=== PATIENT | male | born 1955 | race African-American/Black ===

== ENCOUNTER 2017-02-16 15:40 | Inpatient (IN) | payer MEDICAID, OTHER ==
[~2017-02-16] VITALS: Ht 177.8 cm; Wt 95.5 kg
[~2017-02-16 15:40] MED LIST: BENA40TA41; CARV12.579; FURO40TA4; POTASSIUM
[2017-02-16] MEDS ORDERED: SOD CHLORIDE 0.9% 1,000 ML IV STA ×2 (15:48→16:08)
--- NOTE | 2017-02-16 16:00 | ERA ---
ER Documentation Chief Complaint Date/Time DATE: 02/16/17 TIME: 15:53 Chief Complaint HPI This is a 61-year-old -[place] male with known history of hypertension that presents to the emergency department brought in by EMS after he had a witnessed tonic-clonic seizure by his just prior to arrival. The patient indicates that he has never had any seizure activity before. EMS arrived and the patient appeared very combative and confused. The patient lost urinary incontinence and did not bite his tongue. His states that over the past 7 days he has appeared confused but denies any recent remote head trauma. The patient did indicate that yesterday around 1 PM, 12 hours prior to arrival the patient developed bilateral pulsating headache. He took Advil and had a completely resolved. He states he does not have a headache at this time. He has no fever shaking or chills and denies any neck pain. He has had no recent travel. He denies illicit drug use. [employer] were called due to the fact that the patient was very aggressive and he was transported to [facility] for further evaluation. EMS did indicate that the stated the patient had a history of alcohol abuse. The believes the last time the patient utilized alcohol was . The patient is a poor historian and therefore is unable to provide any further history. ROS All systems reviewed and are negative except as per history of present illness. Medications Home Meds Discontinued Reported Medications [Potassium ] 40 MEQ No Conflict Check 09/22/09 Furosemide (Lasix) 40 Mg Tab 09/22/09 Benazepril Hcl* (Benazepril Hcl*) 40 Mg Tablet 09/22/09 Carvedilol* (Carvedilol*) 12.5 Mg Tablet 09/22/09 Allergies Allergies: Coded Allergies: No Known Allergies (Verified Allergy, Mild, 02/16/17) PMhx/Soc History of Surgery: Yes (JESSIKA KNEE) Hx Neurological Disorder: No Hx Respiratory Disorders: Yes (BRONCHITIS) Hx Cardiac Disorders: Yes (CHF HTN) Hx Miscellaneous Medical Probl: No Hx Alcohol Use: No Hx Substance Use: No Hx Tobacco Use: No Physical Exam Vitals Vital Signs Date Time Temp Pulse Resp B/P Pulse Ox O2 Delivery O2 Flow Rate FiO2 02/16/17 18:24 98.9 96 22 132/64 99 Nasal Cannula 3.0 02/16/17 16:34 Nasal Cannula 2 02/16/17 16:24 110 22 140/100 Nasal Cannula 3.0 02/16/17 15:57 98.9 118 18 136/79 99 Physical Exam Constitutional:Well-developed. Well-nourished. HEENT:Normocephalic. Atraumatic.Pupils were equal round reactive to light. Dry mucous membranes.No tonsillar exudates. Endoscopy exam showed sharp optic disc bilaterally venous pulsations were present. Linear abrasion over the right lateral tongue with no blood present within the oropharynx. Neck: No nuchal rigidity. No lymphadenopathy. No posterior cervical spine tenderness or step-offs. Respiratory: Not using accessory muscles of respiration.Lungs were clear to auscultation bilaterally. No rhonchi. No rales. No wheezing. Cardiovascular: Regular rate regular rhythm.No murmurs. No rubs were appreciated.S1, S2 normal. Distal pulses are palpable 2+ bilaterally. GI: Abdomen was soft. Nontender. Non Distended. No pulsatile abdominal masses or bruits. No rebound. No guarding. Bowel sounds were present and normal. Muscle skeletal: Full range of motion of both the upper and lower extremities bilaterally.Normal muscle tone.No assymetrical calf tenderness or swelling. Skin: No petechia, no purpura. No lesions on the palms or the soles of the feet. No maculopapular rash. NEURO: Patient was alert, awake, orientated to person place and time but was very slow to answer questions but did follow verbal command. No facial droop. Gait observed and normal with no ataxia.Speech had regular rate and rhythm. No focal neurological deficits. Result Diagram: 02/16/17 1650 02/16/17 1650 Results 24 hrs Laboratory Tests Test 02/16/17 16:50 White Blood Count 5.610^3/ul Red Blood Count 4.5510^6/ul Hemoglobin 13.8g/dl Hematocrit 39.8% Mean Corpuscular Volume 87.5fl Mean Corpuscular Hemoglobin 30.3pg Mean Corpuscular Hemoglobin Concent 34.7g/dl Red Cell Distribution Width 14.0% Platelet Count 96258^3/UL Mean Platelet Volume 10.3fl Neutrophils % 77.0% Lymphocytes % 10.7% Monocytes % 9.8% Eosinophils % 1.6% Basophils % 0.4% Nucleated Red Blood Cells % 0.0/100WBC Neutrophils # 4.310^3/ul Lymphocytes # 0.610^3/ul Monocytes # 0.610^3/ul Eosinophils # 0.110^3/ul Basophils # 0.010^3/ul Nucleated Red Blood Cells # 0.010^3/ul Prothrombin Time 13.8Sec Prothrombin Time Ratio 1.1 INR International Normalized Ratio 1.06 Activated Partial Thromboplast Time 28.4Sec Sodium Level 139mmol/L Potassium Level 3.5mmol/L Chloride Level 95mmol/L Carbon Dioxide Level 27mmol/L Anion Gap 21 Blood Urea Nitrogen 17mg/dl Creatinine 0.99mg/dl Glucose Level 172mg/dl Lactic Acid Level 7.6mmol/L Calcium Level 9.2mg/dl Total Bilirubin 0.3mg/dl Direct Bilirubin 0.00mg/dl Indirect Bilirubin 0.3mg/dl Aspartate Amino Transf (AST/SGOT) 265IU/L Alanine Aminotransferase (ALT/SGPT) 309IU/L Alkaline Phosphatase 145IU/L Ammonia 15umol/l Creatine Kinase 896IU/L Creatine Kinase Index 2.3 Creatinine Kinase MB (Mass) 20.70ng/ml Troponin I 0.024ng/ml Total Protein 7.1g/dl Albumin 3.7g/dl Globulin 3.40g/dl Albumin/Globulin Ratio 1.08 Salicylates Level < 1.0mg/dl Acetaminophen Level < 10.0ug/ml Ethyl Alcohol Level < 10.0mg/dl Current Medications Medications (Trade) Dose Ordered Sig/Epifanio Route PRN Reason Start Time Stop Time Status Last Admin Dose Admin Sodium Chloride (NS) 1,000 ml @ 1,000 mls/hr Q1H STAT IV 02/16/17 15:48 02/16/17 16:47 DC 02/16/17 16:17 Epinephrine 1 mg STK-MED ONCE .ROUTE 02/16/17 16:05 02/16/17 16:06 DC Lorazepam 2 mg 2 mg STK-MED ONCE .ROUTE 02/16/17 16:06 02/16/17 16:07 DC Sodium Chloride (NS) 1,000 ml @ 1,000 mls/hr Q1H STAT IV 02/16/17 16:08 02/16/17 17:07 DC 02/16/17 16:21 Lorazepam 2 mg 2 mg ONCE STAT IV 02/16/17 16:08 02/16/17 16:09 DC 02/16/17 16:17 Levetiracetam 100 ml @ 400 mls/hr ONCE STAT IVPB 02/16/17 16:08 02/16/17 16:22 DC 02/16/17 16:08 Magnesium Sulfate/ Multivitamins/ Thiamine HCl/ Folic Acid/Sodium Chloride (Magnesium Sulfate/Mvi Adult/ Vitamin B1/Folic Acid/NS) 1,015.2 ml @ 500 mls/ hr Q2H2M STAT IV 02/16/17 16:08 02/16/17 18:09 DC 02/16/17 16:08 Sodium Chloride 2960 ml 2,960 ml BOLUS OVER 2 HOURS STAT IV* 02/16/17 18:03 02/16/17 18:04 DC 02/16/17 18:44 Vancomycin HCl 250 ml @ 125 mls/hr ONCE STAT IVPB 02/16/17 18:03 02/16/17 20:02 DC 02/16/17 21:34 Piperacillin Sod/ Tazobactam Sod (Zosyn 3.375gm/ 100 ml (Pmx)) 100 ml @ 200 mls/hr ONCE STAT IVPB 02/16/17 18:03 02/16/17 18:32 DC 02/16/17 18:03 Procedures/MDM The patient presented to the emergency department with an acute and persistent change in their mental status. The differential diagnosis is diverse however reversible causes such as hypoglycemia, opiate overdose, thiamine deficiency were immediately considered. The patient was placed on a satellite project site monitor, continuous pulse oximetry and IV access was established. The patients airway was secure however hypoxic events such as anemia, shock, or severe pulmonary disease were all considered as etiologies in this patients presentation. Circulation assessed with good cap refill and did not require fluids or pressure support. Finger stick for rapid glucose determined to be normal. I did indicate [employer] that I felt the patient could be removed from the cuffs as he was no longer combative. He appeared very confused and had no recollection of the possible seizure activity. The patient had no nuchal rigidity or signs of meningitis. At 1605 the patient had a witnessed tonic-clonic seizure by myself and nursing staff. He immediately was suctioned, airway was intact and the patient received 2 mg of Ativan intravenously with resolution of the seizure. Seizure precautions were administered. Given the possibility of delirium tremors the patient was given a banana bag of thiamine folic acid and multivitamin. He was also given IV Keppra. 12 Lead EKG tracing ordered and reviewed by myself showed: Sinus tachycardia 101 bpm and no arrhythmia. MN interval normal. QRS duration normal. No ST segment elevation No ST segment depression. No changes consistent with acute ischemia. The patient's lactic acid was elevated at 7.6. However I did not feel the patient was in septic shock due to the elevated lactate and felt this was more likely result of the patient's seizure activity. The patient however did receive a 30 cc/kg bolus and was prophylactically started on antibiotics as I could not rule out aspiration pneumonia. He received vancomycin and Zosyn. The patient was not hypotensive and was afebrile The patient will be admitted in serious condition with an anticipated stay of greater than 2 midnights to the hospitalist Dr. Jones Departure Diagnosis: Primary Impression: New onset seizure Additional Impression: Lactic acidosis Condition: Serious AKIL EDUARDO Feb 16, 2017 16:00
[2017-02-16] MEDS ORDERED: EPINEPHrine 0.1 MG/ML SYG ONE (16:05)
[2017-02-16] MEDS ORDERED: LORAZEPAM 2 MG INJ ONE (16:06)
[2017-02-16] MEDS ORDERED: LEVETIRACETAM 1000 MG (PMX) 100 ML IVPB STA (16:08)
[2017-02-16] MEDS ORDERED: MAGNESIUM SULFATE 2 GM, MULTIVITAMINS 10 ML, THIAMINE 100 MG, FOLIC ACID 1 MG in SOD CH... IV STA (16:08)
[2017-02-16] MEDS ORDERED: LORAZEPAM 2 MG INJ IV STA (16:08)
[2017-02-16 17:27] LABS: BASOPHILS % 0.4 % (0.0-2.0); EOSINOPHILS # 0.1 10^3/ul (0.0-0.5); EOSINOPHILS % 1.6 % (0.0-7.0); HEMATOCRIT 39.8 % (42.0-52.0); HEMOGLOBIN 13.8 g/dl (14.0-18.0); LYMPHOCYTES # 0.6 10^3/ul (0.8-2.9); LYMPHOCYTES % 10.7 % (15.0-51.0); MEAN CORPUSCULAR HEMOGLOBIN 30.3 pg (29.0-33.0); MEAN CORPUSCULAR HGB CONC 34.7 g/dl (32.0-37.0); MEAN CORPUSCULAR VOLUME 87.5 fl (82.0-101.0); MEAN PLATELET VOLUME 10.3 fl (7.4-10.4); MONOCYTE # 0.6 10^3/ul (0.3-0.9); MONOCYTES % 9.8 % (0.0-11.0); NEUTROPHIL # 4.3 10^3/ul (1.6-7.5); PLATELET COUNT 191 10^3/UL (140-415); RED BLOOD COUNT 4.55 10^6/ul (4.70-6.10); WHITE BLOOD COUNT 5.6 10^3/ul (4.8-10.8)
[2017-02-16 17:43] LABS: INR 1.06; PARTIAL THROMBOPLASTIN TIME 28.4 Sec (25.0-35.0); PROTIME 13.8 Sec (12.2-14.2); PT RATIO 1.1
[2017-02-16 17:46] LABS: ALANINE AMINOTRANSFERASE 309 IU/L (13-69); ALBUMIN 3.7 g/dl (3.3-4.9); ALBUMIN/GLOBULIN RATIO 1.08; ALKALINE PHOSPHATASE 145 IU/L (42-121); ANION GAP 21 (8-16); ASPARTATE AMINO TRANSFERASE 265 IU/L (15-46); BILIRUBIN,INDIRECT 0.3 mg/dl (0-1.1); BILIRUBIN,TOTAL 0.3 mg/dl (0.2-1.3); BLOOD UREA NITROGEN 17 mg/dl (7-20); CALCIUM 9.2 mg/dl (8.4-10.2); CARBON DIOXIDE 27 mmol/L (21-31); CHLORIDE 95 mmol/L (97-110); CREATINE KINASE 896 IU/L (23-200); GLUCOSE 172 mg/dl (70-220); POTASSIUM 3.5 mmol/L (3.5-5.1); SODIUM 139 mmol/L (135-144); TOTAL PROTEIN 7.1 g/dl (6.1-8.1)
[2017-02-16 17:51] LABS: ACETAMINOPHEN < 10.0 ug/ml (10.0-30.0); ETHANOL < 10.0 mg/dl; SALICYLATE < 1.0 mg/dl (5.0-30.0)
[2017-02-16 17:57] LABS: TROPONIN-I 0.024 ng/ml (0.00-0.12)
[2017-02-16 18:03] LABS: LACTIC ACID 7.6 mmol/L (0.5-2.0)
[2017-02-16] MEDS ORDERED: SODIUM CHLORIDE 0.9% 1L BAG IV* STA (18:03)
[2017-02-16] MEDS ORDERED: PIPER-TAZO 3.375 GM IV (PMX) 100 ML IVPB STA (18:03)
[2017-02-16] MEDS ORDERED: VANCOMYCIN 1 GM (PMX) 250 ML IVPB STA (18:03)
--- NOTE | 2017-02-16 18:03 | RADRPT ---
PROCEDURE: CT Brain without contrast. CLINICAL INDICATION: Headache. TECHNIQUE: A CT of the brain without contrast was performed utilizing axial sections from the skul l base through the vertex. The patient was scanned without intravenous contrast enhancement. Sagitta l and coronal reformatted images were obtained using the data from the axial images. Total exam DLP is 900.28 mGy-cm. CTDIvol is 42.69 mGy. One or more of the following dose reduction techniques we re used: Automated exposure control, adjustment of the mA and/or kV according to patient size, use o f iterative reconstruction technique. COMPARISON: None available FINDINGS: There is normal lara-white matter differentiation. There is mild enlargement of the ventricles and subarachnoid spaces consistent with atrophy. There is no intracranial hemorrhage or space-occupying lesion. There is no skull fracture or lytic lesion. IMPRESSION: 1. Mild atrophy. 2. Otherwise normal noncontrast CT scan of the brain. 3. No intracranial hemorrhage. RPTAT: QQ .Anish Bonds MD, MD Date Time Electronically viewed and signed by .Anish Bonds MD, MD on 02/16/2017 18:03 .R/
[2017-02-16 18:05] LABS: CREATININE 0.99 mg/dl (0.61-1.24)
--- NOTE | 2017-02-16 18:49 | RADRPT ---
PROCEDURE: XR Chest. CLINICAL INDICATION: Altered mental status. TECHNIQUE: Chest x-ray, single view. COMPARISON: None. FINDINGS: The cardiac silhouette is magnified. Cardiomegaly may be present. Low lung volumes are observed. T here is no focal pulmonary parenchymal opacification. Skeletal structures and upper abdomen are unre markable. IMPRESSION: Low lung volumes. RPTAT: HLST .Liseth Archer MD, MD Date Time Electronically viewed and signed by .Liseth Archer MD, on 02/16/2017 18:49 .T/
[2017-02-16] MEDS: DEXTROSE 5%-0.45% NACL 1,000 ML IV SCH (21:44)
[2017-02-16] MEDS ORDERED: SOD CHLORIDE 0.9% 100 ML ONE (21:45)
[2017-02-16] MEDS ORDERED: IOHEXOL 300MG/ML 150 ML BTL ONE (21:45)
[2017-02-16] MEDS ORDERED: LEVETIRACETAM 1000 MG (PMX) 100 ML IVPB SCH (22:00)
[2017-02-16] MEDS ORDERED: ACETAMINOPHEN 650 MG SUPP PR PRN (22:00)
[2017-02-16] MEDS ORDERED: morphine 4 MG/ML VIAL IV PRN (22:00)
[2017-02-16] MEDS ORDERED: LORAZEPAM 2 MG INJ IV PRN (22:00)
[2017-02-16] MEDS ORDERED: ONDANSETRON 4 MG INJ IV PRN (22:00)
[2017-02-16] MEDS: MULTIVITAMINS 10 ML, THIAMINE 100 MG, FOLIC ACID 1 MG in SOD CHLORIDE 0.9% 1,000 ML IVPB SCH (22:00)
[2017-02-17] VITALS (11 sets, daily range): BP systolic 137–149; BP diastolic 72–87; PULSE 75–90; RESP 18–19; TEMP 98; Ht 177.8 cm; Wt 95.5 kg
[2017-02-17] MEDS ORDERED: ONDANSETRON 4 MG INJ IV PRN
[2017-02-17] MEDS ORDERED: ACETAMINOPHEN 325 MG TAB PO PRN
[2017-02-17] MEDS: ALBUTEROL/IPRATROPIUM (NEB) 3 ML AMP NEB SCH ×6 (01:20→20:36)
[2017-02-17] MEDS: LEVETIRACETAM 1000 MG (PMX) 100 ML IVPB SCH ×3 (02:26→20:29)
[2017-02-17 05:15] LABS: BASOPHILS % 0.3 % (0.0-2.0); EOSINOPHILS # 0.1 10^3/ul (0.0-0.5); HEMATOCRIT 34.7 % (42.0-52.0); LYMPHOCYTES # 0.8 10^3/ul (0.8-2.9); LYMPHOCYTES % 11.3 % (15.0-51.0); MEAN CORPUSCULAR HEMOGLOBIN 29.9 pg (29.0-33.0); MEAN CORPUSCULAR HGB CONC 34.6 g/dl (32.0-37.0); MEAN CORPUSCULAR VOLUME 86.3 fl (82.0-101.0); MEAN PLATELET VOLUME 10.5 fl (7.4-10.4); MONOCYTE # 0.8 10^3/ul (0.3-0.9); MONOCYTES % 11.1 % (0.0-11.0); NEUTROPHIL # 5.2 10^3/ul (1.6-7.5); NEUTROPHILS % 75.6 % (39.0-77.0); PLATELET COUNT 215 10^3/UL (140-415); RED BLOOD COUNT 4.02 10^6/ul (4.70-6.10); RED CELL DISTRIBUTION WIDTH 13.9 % (11.5-14.5); WHITE BLOOD COUNT 6.9 10^3/ul (4.8-10.8)
--- NOTE | 2017-02-17 05:29 | HP ---
Date/Time of Note Date/Time of Note DATE: 02/17/17 TIME: 05:13 Assessment/Plan VTE Prophylaxis VTE Prophylaxis Intervention: SCD's Lines/Catheters [facility] Peripheral IV Urinary Cath still in place: No Assessment/Plan Assessment/Plan 1. New onset seizure: Unknown etiology -Patient does have a history of alcohol abuse but his last drink was over 2 months ago. -Head CT was negative for acute findings. -For now he will be placed on a banana bag just to make sure his seizure is not related to his withdrawal even though reportedly his last drink was 2 months ago. -He will be on Keppra and as needed Ativan -Neurology consult will be placed. -Seizure precaution 2. Lactic acidosis: Resolved 3. Elevated transaminases: Likely secondary to alcoholic liver disease. Will order right upper quadrant ultrasound 4. Mild rhabdomyolysis: Secondary to seizure. He will receive IV fluids. Will check CK level. HPI/ROS Admit Date/Time Admit Date/Time Feb 16, 2017 at 23:43 Hx of Present Illness This is a 61-year-old male with history of alcohol abuse who presented to the emergency department after having had a seizure. Reportedly the patient was very confused and combative when he was picked up by EMS. Currently patient is able to give history and he told me that about a week ago he had a flu which was resolving. He said he remembers going up the stairs at his home but next thing he remembers is that he is in the hospital. According to the ER report, his described seizure-like activity at home. The patient denies a history of seizure. He stated he quit drinking in November of this year. He is speaking slowly and at times somehow difficult to understand what he is saying which he attributed to him biting his tongue during the seizure episode. He is currently alert and oriented 4 even though appears sleepy. He is actually asking to go home from times a day. When he presented to the ER his initial lactic acid was 7.6, repeat 1 is 1.8. AST is 265 and ALT 309. His alcohol level is negative. Head CT and a chest x- ray were negative for acute findings. PMH/Family/Social Social History Alcohol Use: sober Smoking Status: Unknown if ever smoked Drug Use: none Exam/Review of Systems Vital Signs Vitals Vital Signs Date Time Temp Pulse Resp B/P Pulse Ox O2 Delivery O2 Flow Rate FiO2 02/17/17 02:32 90 02/17/17 00:45 98.0 19 129/90 99 Room Air 02/16/17 20:30 3.0 Exam Constitutional: alert, oriented, other (Appears sleepy but fully arousable), well developed Head: atraumatic, normocephalic Eyes: EOMI, PERRL ENMT: other (There is injury to the fourth part of his tongue, related to biting) Respiratory: clear to auscultation, normal air movement Cardiovascular: other (Slightly tachycardic with regular rhythm) Gastrointestinal: non-tender, soft Extremities: normal pulses Labs Result Diagram: 02/16/17 1650 02/16/17 165 Medications Medications Current Medications Dextrose/Sodium Chloride (D5-1/2ns) 1,000 ml @ 100 mls/hr Q10H IV ; Start 02/16 at 21:44 Ondansetron HCl (Zofran Inj) 4 mg Q6H PRN IV NAUSEA AND/OR VOMITING; Start at 22:00 Acetaminophen (Tylenol Supp) 650 mg Q4H PRN [place] PAIN LEVEL 1-3 OR FEVER; Start 02/16/17 at 22:00 Morphine Sulfate (morphine) 2 mg Q4H PRN IV PAIN LEVEL 7-10; Start 02/16/17 at 22:00 Lorazepam 2 mg 2 mg Q1H PRN IV seizure; Start 02/16/17 at 22:00 Multivitamins 10 ml/Thiamine HCl 100 mg/Folic Acid 1 mg/Sodium Chloride 1,011.2 ml @ 125 mls/ hr DAILY@09 IVPB ; Start 02/16/17 at 22:00; Stop 02/18/17 at 23:00 Levetiracetam (Keppra 1,000mg/ 100ml (Pmx)) 100 ml @ 400 mls/hr Q12 IVPB Last administered on 02/17/17t 02:26; Admin Dose 400 MLS/HR; Start 02/17/17 at 01:00 REZA BRICEÑO MD Feb 17, 2017 05:27
[2017-02-17 05:42] LABS: ALBUMIN/GLOBULIN RATIO 1.03; BILIRUBIN,INDIRECT 0.2 mg/dl (0-1.1); BILIRUBIN,TOTAL 0.2 mg/dl (0.2-1.3); CALCIUM 8.2 mg/dl (8.4-10.2); CREATININE 0.81 mg/dl (0.61-1.24); POTASSIUM 3.9 mmol/L (3.5-5.1); TOTAL PROTEIN 5.9 g/dl (6.1-8.1)
--- NOTE | 2017-02-17 08:04 | RADRPT ---
PROCEDURE: US Abdomen. CLINICAL INDICATION: Abnormal liver enzymes, right upper quadrant pain TECHNIQUE: Multiple real-time images were acquired of the patient's abdomen and retroperitoneum ut ilizing a high resolution transducer. COMPARISON: None FINDINGS: Visualized portions of the pancreatic head and proximal body are unremarkable. The liver is normal in size and contour without evidence of intrapelvic biliary dilatation. The gallbladder is normal without evidence of cholelithiasis, pericholecystic fluid or gallbladder w all thickening. The technologist reports a negative sonographic Ruth's sign. The common bile du ct measures 5.7 mm in maximal dimension. No free fluid is identified. The right kidney is unremarkable without evidence of hydronephrosis or mass. Right kidney measures 12.7 cm in length. IMPRESSION: No significant abnormalities are identified. RPTAT:AAJJ Physician Pop Date Time Electronically viewed and signed by Physician Pop on 02/17/2017 08:03 CHAYO/
[2017-02-17] MEDS: DEXTROSE 5%-0.45% NACL 1,000 ML IV SCH ×2 (11:00→17:44)
--- NOTE | 2017-02-17 11:51 | CONS ---
Date/Time of Note Date/Time of Note DATE: 02/17/17 TIME: 11:46 Assessment/Plan Assessment/Plan Chief Complaint/Hosp Course 61 yo male with history of alcohol and drug abuse, reportedly quit in November now p/ w 2x generalized seizures with post-ictal state. Recommendations: MRI Brain w/o contrast elevated LFT's undergoing work up check B12, Thiamine levels High dose IV Thiamine x 3 days for Wernicke's dosing may start Keppra 1 gram BID Routine EEG will follow again tomorrow Problems: Consultation Date/Type/Reason Admit Date/Time Feb 16, 2017 at 23:43 Date of Consultation: Feb 17, 2017 Type of Consultation: Neurology Reason for Consultation eval for seizures Referring Provider: EULALIA SANTANA Hx of Present Illness 61 year old male with history of alcohol abuse presented to ER with seizures. Patient is a very poor historian and was combative and confused when EMS arrival. He has no known hx of seizures reportedly quit drinking a month ago. He admits to drug use in the past, no recent use. He did bite his tongue and has significant tongue abrasion. Lactic acid elevated 7.6 trending down, LFT'S elevated AST/ALT 265/309, neg alcohol level. encephalopathic Past Medical History ETOH abuse Social History Alcohol Use: sober Smoking Status: Unknown if ever smoked Drug Use: none Exam/Review of Systems Vital Signs Vitals Vital Signs Date Time Temp Pulse Resp B/P Pulse Ox O2 Delivery O2 Flow Rate FiO2 02/17/17 11:04 98.2 77 18 145/76 96 02/17/17 09:47 21 02/17/17 01:00 2.0 02/17/17 00:45 Room Air Intake and Output 02/16/17 02/16/17 02/17/17 15:00 23:00 07:00 Intake Total 150 ml Output Total 240 ml Balance -90 ml Exam awake and alert oriented to self, hospital, date slow to response with dysarthric speech he follows commands with repetition CN: ABEL, no nystagmus no facial asymmetry moderate dysarthria Motor: 5/5 ue and le, no tremors tone is wnl Reflexes 1+ throughout UE and LE toes down Results Result Diagram: 02/17/1741902/17/17419 Results 24 hrs Laboratory Tests Test 02/16/17 16:50 02/16/17 21:00 02/17/17 04:20 02/17/17 06:06 White Blood Count 5.6 6.9 # Red Blood Count 4.55 L 4.02 L Hemoglobin 13.8 L 12.0 L Hematocrit 39.8 L 34.7 L Mean Corpuscular Volume 87.5 86.3 Mean Corpuscular Hemoglobin 30.3 29.9 Mean Corpuscular Hemoglobin Concent 34.7 34.6 Red Cell Distribution Width 14.0 13.9 Platelet Count 191 215 Mean Platelet Volume 10.3 10.5 H Neutrophils % 77.0 75.6 Lymphocytes % 10.7 L 11.3 L Monocytes % 9.8 11.1 H Eosinophils % 1.6 1.0 Basophils % 0.4 0.3 Nucleated Red Blood Cells % 0.0 0.0 Neutrophils # 4.3 5.2 Lymphocytes # 0.6 L 0.8 Monocytes # 0.6 0.8 Eosinophils # 0.1 0.1 Basophils # 0.0 0.0 Nucleated Red Blood Cells # 0.0 0.0 Prothrombin Time 13.8 Prothrombin Time Ratio 1.1 INR International Normalized Ratio 1.06 Activated Partial Thromboplast Time 28.4 Sodium Level 139 140 Potassium Level 3.5 3.9 Chloride Level 95 L 101 Carbon Dioxide Level 27 28 Anion Gap 21 H 15 Blood Urea Nitrogen 17 13 Creatinine 0.99 0.81 Glucose Level 172 95 # Lactic Acid Level 7.6 *H 1.8 1.0 Calcium Level 9.2 8.2 L Total Bilirubin 0.3 0.2 Direct Bilirubin 0.00 0.00 Indirect Bilirubin 0.3 0.2 Aspartate Amino Transf (AST/SGOT) 265 H 161 H Alanine Aminotransferase (ALT/SGPT) 309 H 218 H Alkaline Phosphatase 145 H 116 Ammonia 15 Creatine Kinase 896 H Creatine Kinase Index 2.3 Creatinine Kinase MB (Mass) 20.70 H Troponin I 0.024 0.062 Total Protein 7.1 5.9 #L Albumin 3.7 3.0 L Globulin 3.40 H 2.90 Albumin/Globulin Ratio 1.08 1.03 Salicylates Level < 1.0 L Acetaminophen Level < 10.0 L Ethyl Alcohol Level < 10.0 Medications Medications Current Medications Dextrose/Sodium Chloride (D5-1/2ns) 1,000 ml @ 100 mls/hr Q10H IV Last administered on 02/17/17 11:00; Admin Dose 100 MLS/HR; Start 02/16/17 at 21:44 Ondansetron HCl (Zofran Inj) 4 mg Q6H PRN IV NAUSEA AND/OR VOMITING; Start at 22:00 Acetaminophen (Tylenol Supp) 650 mg Q4H PRN [place] PAIN LEVEL 1-3 OR FEVER; Start 02/16/17 at 22:00 Morphine Sulfate (morphine) 2 mg Q4H PRN IV PAIN LEVEL 7-10; Start 02/16/17 at 22:00 Lorazepam 2 mg 2 mg Q1H PRN IV seizure; Start 02/16/17 at 22:00 Multivitamins 10 ml/Thiamine HCl 100 mg/Folic Acid 1 mg/Sodium Chloride 1,011.2 ml @ 125 mls/ hr DAILY@09 IVPB ; Start 02/16/17 at 22:00; Stop 02/18/17 at 23:00 Levetiracetam (Keppra 1,000mg/ 100ml (Pmx)) 100 ml @ 400 mls/hr Q12 IVPB Last administered on 02/17/17 11:07; Admin Dose 400 MLS/HR; Start 02/17/17 at 01:00 MARIBEL REYSE MD Feb 17, 2017 11:51
--- NOTE | 2017-02-17 15:21 | PN ---
Date/Time of Note Date/Time of Note DATE: 02/17/17 TIME: 15:19 Assessment/Plan VTE Prophylaxis VTE Prophylaxis Intervention: SCD's Lines/Catheters IV [facility] ([facility] Peripheral IV Urinary Cath still in place: No Assessment/Plan Chief Complaint/Hosp Course Assessment and plan 1. New onset seizure. Follow-up on EEG as well as MRI of the brain. CT scan of the head was negative for any acute findings. Patient on banana bag for history of alcohol abuse. Continue on Keppra. Neurologist consulted. Will follow up with recommendations. 2. Lactic acidosis likely secondary to #1. Improved at this time. Will monitor. 3. Abdomen that is likely secondary to alcoholic liver disease. Cessation was advised. Monitor level for now. 4. Mild rhabdomyolysis secondary to #1. Continue with IV fluids. Disposition and plan: Follow-up with MRI and EEG. Discussed plan of care with Dr. Porter Problems: Subjective 24 Hr Interval Summary Free Text/Dictation More alert today. No signs or symptoms of distress. Exam/Review of Systems Vital Signs Vitals Vital Signs Date Time Temp Pulse Resp B/P Pulse Ox O2 Delivery O2 Flow Rate FiO2 02/17/17 15:04 98.3 74 18 137/86 97 02/17/17 09:47 21 02/17/17 01:00 2.0 02/17/17 00:45 Room Air Intake and Output 02/16/17 02/16/17 02/17/17 15:00 23:00 07:00 Intake Total 150 ml Output Total 240 ml Balance -90 ml Exam Constitutional: alert, oriented Head: normocephalic Respiratory: normal air movement Gastrointestinal: soft Musculoskeletal: nl extremities to inspection Neurological: nl mental status Results Result Diagram: 02/17/17 0420 02/17/17 0420 Results 24 hrs Laboratory Tests Test 02/16/17 16:50 02/16/17 21:00 02/17/17 04:20 02/17/17 06:06 White Blood Count 5.6 6.9 # Red Blood Count 4.55 L 4.02 L Hemoglobin 13.8 L 12.0 L Hematocrit 39.8 L 34.7 L Mean Corpuscular Volume 87.5 86.3 Mean Corpuscular Hemoglobin 30.3 29.9 Mean Corpuscular Hemoglobin Concent 34.7 34.6 Red Cell Distribution Width 14.0 13.9 Platelet Count 191 215 Mean Platelet Volume 10.3 10.5 H Neutrophils % 77.0 75.6 Lymphocytes % 10.7 L 11.3 L Monocytes % 9.8 11.1 H Eosinophils % 1.6 1.0 Basophils % 0.4 0.3 Nucleated Red Blood Cells % 0.0 0.0 Neutrophils # 4.3 5.2 Lymphocytes # 0.6 L 0.8 Monocytes # 0.6 0.8 Eosinophils # 0.1 0.1 Basophils # 0.0 0.0 Nucleated Red Blood Cells # 0.0 0.0 Prothrombin Time 13.8 Prothrombin Time Ratio 1.1 INR International Normalized Ratio 1.06 Activated Partial Thromboplast Time 28.4 Sodium Level 139 140 Potassium Level 3.5 3.9 Chloride Level 95 L 101 Carbon Dioxide Level 27 28 Anion Gap 21 H 15 Blood Urea Nitrogen 17 13 Creatinine 0.99 0.81 Glucose Level 172 95 # Lactic Acid Level 7.6 *H 1.8 1.0 Calcium Level 9.2 8.2 L Total Bilirubin 0.3 0.2 Direct Bilirubin 0.00 0.00 Indirect Bilirubin 0.3 0.2 Aspartate Amino Transf (AST/SGOT) 265 H 161 H Alanine Aminotransferase (ALT/SGPT) 309 H 218 H Alkaline Phosphatase 145 H 116 Ammonia 15 Creatine Kinase 896 H Creatine Kinase Index 2.3 Creatinine Kinase MB (Mass) 20.70 H Troponin I 0.024 0.062 Total Protein 7.1 5.9 #L Albumin 3.7 3.0 L Globulin 3.40 H 2.90 Albumin/Globulin Ratio 1.08 1.03 Salicylates Level < 1.0 L Acetaminophen Level < 10.0 L Ethyl Alcohol Level < 10.0 Medications Medications Current Medications Dextrose/Sodium Chloride (D5-1/2ns) 1,000 ml @ 100 mls/hr Q10H IV Last administered on 02/17/17t 11:00; Admin Dose 100 MLS/HR; Start 02/16/17 at 21:44 Ondansetron HCl (Zofran Inj) 4 mg Q6H PRN IV NAUSEA AND/OR VOMITING; Start at 22:00 Acetaminophen (Tylenol Supp) 650 mg Q4H PRN [place] PAIN LEVEL 1-3 OR FEVER; Start 02/16/17 at 22:00 Morphine Sulfate (morphine) 2 mg Q4H PRN IV PAIN LEVEL 7-10; Start 02/16/17 at 22:00 Lorazepam 2 mg 2 mg Q1H PRN IV seizure; Start 02/16/17 at 22:00 Multivitamins 10 ml/Thiamine HCl 100 mg/Folic Acid 1 mg/Sodium Chloride 1,011.2 ml @ 125 mls/ hr DAILY@09 IVPB ; Start 02/16/17 at 22:00; Stop 02/18/17 at 23:00 Levetiracetam (Keppra 1,000mg/ 100ml (Pmx)) 100 ml @ 400 mls/hr Q12 IVPB Last administered on 02/17/17t 11:07; Admin Dose 400 MLS/HR; Start 02/17/17 at 01:00 EULAILA SANTANA Feb 17, 2017 15:21
[2017-02-18] VITALS (12 sets, daily range): BP systolic 128–179; BP diastolic 69–97; PULSE 75–96; RESP 18–20
[2017-02-18] MEDS: ALBUTEROL/IPRATROPIUM (NEB) 3 ML AMP NEB SCH ×5 (00:46→20:26)
[2017-02-18] MEDS: DEXTROSE 5%-0.45% NACL 1,000 ML IV SCH ×4 (01:32→23:44)
[2017-02-18 07:46] LABS: BASOPHILS % 0.5 % (0.0-2.0); EOSINOPHILS # 0.1 10^3/ul (0.0-0.5); EOSINOPHILS % 2.4 % (0.0-7.0); HEMATOCRIT 38.1 % (42.0-52.0); HEMOGLOBIN 12.8 g/dl (14.0-18.0); LYMPHOCYTES # 1.1 10^3/ul (0.8-2.9); LYMPHOCYTES % 18.9 % (15.0-51.0); MEAN CORPUSCULAR HEMOGLOBIN 29.5 pg (29.0-33.0); MEAN CORPUSCULAR HGB CONC 33.6 g/dl (32.0-37.0); MEAN CORPUSCULAR VOLUME 87.8 fl (82.0-101.0); MEAN PLATELET VOLUME 10.2 fl (7.4-10.4); MONOCYTE # 0.6 10^3/ul (0.3-0.9); MONOCYTES % 9.7 % (0.0-11.0); NEUTROPHIL # 3.9 10^3/ul (1.6-7.5); NEUTROPHILS % 67.5 % (39.0-77.0); PLATELET COUNT 268 10^3/UL (140-415); RED BLOOD COUNT 4.34 10^6/ul (4.70-6.10); RED CELL DISTRIBUTION WIDTH 14.4 % (11.5-14.5); WHITE BLOOD COUNT 5.8 10^3/ul (4.8-10.8)
[2017-02-18 08:06] LABS: BILIRUBIN,INDIRECT 0.3 mg/dl (0-1.1); BILIRUBIN,TOTAL 0.3 mg/dl (0.2-1.3); CALCIUM 8.7 mg/dl (8.4-10.2); CREATININE 0.78 mg/dl (0.61-1.24); POTASSIUM 3.9 mmol/L (3.5-5.1)
[2017-02-18] MEDS: LEVETIRACETAM 1000 MG (PMX) 100 ML IVPB SCH ×2 (08:33→20:20)
[2017-02-18] MEDS: MULTIVITAMINS 10 ML, THIAMINE 100 MG, FOLIC ACID 1 MG in SOD CHLORIDE 0.9% 1,000 ML IVPB SCH ×2 (09:00→09:55)
--- NOTE | 2017-02-18 13:43 | CONS ---
Date/Time of Note Date/Time of Note DATE: 02/18/17 TIME: 13:42 Consult Date/Type/Reason Admit Date/Time Feb 16, 2017 at 23:43 Initial Consult Date 02/17/17 Type of Consultation: Neurology Reason for Consultation seizure Ordering Provider: EULALIA SANTANA Subjective no overnight events pending MRI EEG is normal Objective Vital Signs Date Time Temp Pulse Resp B/P Pulse Ox O2 Delivery O2 Flow Rate FiO2 02/18/17 13:17 81 20 98 21 02/18/17 11:40 98.0 136/84 02/17/17 09:00 Non Rebreather 02/17/17 01:00 2.0 Intake and Output 02/17/17 02/17/17 02/18/17 15:00 23:00 07:00 Intake Total 300 ml 200 ml Balance 300 ml 200 ml Exam awake and alert oriented to self, hospital, date slow to response with dysarthric speech he follows commands with repetition CN: ABEL, no nystagmus no facial asymmetry moderate dysarthria Motor: 5/5 ue and le, no tremors tone is wnl Reflexes 1+ throughout UE and LE toes down Results/Medications Result Diagram: 02/18/17 0652 02/18/17 0720 Results 24 hrs Laboratory Tests Test 02/18/17 06:52 02/18/17 07:20 White Blood Count 5.8 Red Blood Count 4.34 L Hemoglobin 12.8 L Hematocrit 38.1 L Mean Corpuscular Volume 87.8 Mean Corpuscular Hemoglobin 29.5 Mean Corpuscular Hemoglobin Concent 33.6 Red Cell Distribution Width 14.4 Platelet Count 268 # Mean Platelet Volume 10.2 Neutrophils % 67.5 Lymphocytes % 18.9 Monocytes % 9.7 Eosinophils % 2.4 Basophils % 0.5 Nucleated Red Blood Cells % 0.0 Neutrophils # 3.9 Lymphocytes # 1.1 Monocytes # 0.6 Eosinophils # 0.1 Basophils # 0.0 Nucleated Red Blood Cells # 0.0 Sodium Level 142 Potassium Level 3.9 Chloride Level 100 Carbon Dioxide Level 32 H Anion Gap 14 Blood Urea Nitrogen 7 Creatinine 0.78 Glucose Level 104 Calcium Level 8.7 Total Bilirubin 0.3 Direct Bilirubin 0.00 Indirect Bilirubin 0.3 Aspartate Amino Transf (AST/SGOT) 103 H Alanine Aminotransferase (ALT/SGPT) 172 H Alkaline Phosphatase 112 Total Protein 6.0 L Albumin 3.0 L Globulin 3.00 Albumin/Globulin Ratio 1.00 Medications Current Medications Dextrose/Sodium Chloride (D5-1/2ns) 1,000 ml @ 100 mls/hr Q10H IV Last administered on 02/18/17 01:32; Admin Dose 100 MLS/HR; Start 02/16/17 at 21:44 Ondansetron HCl (Zofran Inj) 4 mg Q6H PRN IV NAUSEA AND/OR VOMITING; Start at 22:00 Acetaminophen (Tylenol Supp) 650 mg Q4H PRN MT PAIN LEVEL 1-3 OR FEVER; Start 02/16/17 at 22:00 Morphine Sulfate (morphine) 2 mg Q4H PRN IV PAIN LEVEL 7-10; Start 02/16/17 at 22:00 Lorazepam 2 mg 2 mg Q1H PRN IV seizure; Start 02/16/17 at 22:00 Multivitamins 10 ml/Thiamine HCl 100 mg/Folic Acid 1 mg/Sodium Chloride 1,011.2 ml @ 125 mls/ hr DAILY@09 IVPB Last administered on 02/18/17 09:00; Admin Dose 125 MLS/HR; Start 02/16/17 at 22:00; Stop 02/18/17 at 23:00 Levetiracetam (Keppra 1,000mg/ 100ml (Pmx)) 100 ml @ 400 mls/hr Q12 IVPB Last administered on 02/18/17 08:33; Admin Dose 400 MLS/HR; Start 02/17/17 at 01:00 Assessment/Plan Chief Complaint/Hosp Course 61 yo male with history of alcohol and drug abuse, reportedly quit in November now p/ w 2x generalized seizures with post-ictal state. Recommendations: MRI Brain w/o contrast pending elevated LFT's undergoing work up check B12, Thiamine levels High dose IV Thiamine x 3 days for Wernicke's dosing c/w Keppra 1 gram BID EEG is normal if MRI normal with no acute process may initiate dc planning with supervision, seizure precautions driving prohibited 6 mo per [facility] regulation Problems: MARIBEL REYES MD Feb 18, 2017 13:43
--- NOTE | 2017-02-18 14:35 | PN ---
Date/Time of Note Date/Time of Note DATE: 02/18/17 TIME: 14:30 Assessment/Plan VTE Prophylaxis VTE Prophylaxis Intervention: SCD's Lines/Catheters IV [facility]ter Type [facility]from [facility] Urinary Cath still in place: No Assessment/Plan Chief Complaint/Hosp Course Assessment and plan 1. New onset seizure. Follow-up on EEG as well as MRI of the brain. CT scan of the head was negative for any acute findings. EEG finding per neurologist report was normal. Follow-up an MRI of the brain. Continue on Keppra per neurologist recommendations. 2. Lactic acidosis likely secondary to #1. Improved at this time. Will monitor. 3. Abdomen that is likely secondary to alcoholic liver disease. Cessation was advised. 4. Mild rhabdomyolysis secondary to #1. Continue with IV fluids. Stable. Disposition and plan: Continue on Keppra for now. EEG reportedly normal. Follow-up an MRI of the brain. Discharge when medically stable and cleared by healthcare market consultant Discussed plan of care with Dr. Porter Problems: Subjective 24 Hr Interval Summary Free Text/Dictation Resting at this time. No specific complaints. No other reports of seizure activity at this time Exam/Review of Systems Vital Signs Vitals Vital Signs Date Time Temp Pulse Resp B/P Pulse Ox O2 Delivery O2 Flow Rate FiO2 02/18/17 13:17 81 20 98 21 02/18/17 11:40 98.0 136/84 02/17/17 09:00 Non Rebreather 02/17/17 01:00 2.0 Intake and Output 02/17/17 02/17/17 02/18/17 15:00 23:00 07:00 Intake Total 300 ml 200 ml Balance 300 ml 200 ml Exam Constitutional: alert, oriented Psych: no complaints Head: normocephalic Eyes: nl conjunctiva Neck: supple, No jvd Respiratory: clear to auscultation, normal air movement Cardiovascular: regular rate and rhythm Gastrointestinal: non-tender, soft Musculoskeletal: nl extremities to inspection 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, nl speech Results Result Diagram: 02/18/17 0652 02/18/17 0720 Results 24 hrs Laboratory Tests Test 02/18/17 06:52 02/18/17 07:20 White Blood Count 5.8 Red Blood Count 4.34 L Hemoglobin 12.8 L Hematocrit 38.1 L Mean Corpuscular Volume 87.8 Mean Corpuscular Hemoglobin 29.5 Mean Corpuscular Hemoglobin Concent 33.6 Red Cell Distribution Width 14.4 Platelet Count 268 # Mean Platelet Volume 10.2 Neutrophils % 67.5 Lymphocytes % 18.9 Monocytes % 9.7 Eosinophils % 2.4 Basophils % 0.5 Nucleated Red Blood Cells % 0.0 Neutrophils # 3.9 Lymphocytes # 1.1 Monocytes # 0.6 Eosinophils # 0.1 Basophils # 0.0 Nucleated Red Blood Cells # 0.0 Sodium Level 142 Potassium Level 3.9 Chloride Level 100 Carbon Dioxide Level 32 H Anion Gap 14 Blood Urea Nitrogen 7 Creatinine 0.78 Glucose Level 104 Calcium Level 8.7 Total Bilirubin 0.3 Direct Bilirubin 0.00 Indirect Bilirubin 0.3 Aspartate Amino Transf (AST/SGOT) 103 H Alanine Aminotransferase (ALT/SGPT) 172 H Alkaline Phosphatase 112 Total Protein 6.0 L Albumin 3.0 L Globulin 3.00 Albumin/Globulin Ratio 1.00 Medications Medications Current Medications Dextrose/Sodium Chloride (D5-1/2ns) 1,000 ml @ 100 mls/hr Q10H IV Last administered on 02/18/17 01:32; Admin Dose 100 MLS/HR; Start 02/16/17 at 21:44 Ondansetron HCl (Zofran Inj) 4 mg Q6H PRN IV NAUSEA AND/OR VOMITING; Start at 22:00 Acetaminophen (Tylenol Supp) 650 mg Q4H PRN MT PAIN LEVEL 1-3 OR FEVER; Start 02/16/17 at 22:00 Morphine Sulfate (morphine) 2 mg Q4H PRN IV PAIN LEVEL 7-10; Start 02/16/17 at 22:00 Lorazepam 2 mg 2 mg Q1H PRN IV seizure; Start 02/16/17 at 22:00 Multivitamins 10 ml/Thiamine HCl 100 mg/Folic Acid 1 mg/Sodium Chloride 1,011.2 ml @ 125 mls/ hr DAILY@09 IVPB Last administered on 02/18/17 09:00; Admin Dose 125 MLS/HR; Start 02/16/17 at 22:00; Stop 02/18/17 at 23:00 Levetiracetam (Keppra 1,000mg/ 100ml (Pmx)) 100 ml @ 400 mls/hr Q12 IVPB Last administered on 02/18/17 08:33; Admin Dose 400 MLS/HR; Start 02/17/17 at 01:00 EULALIA SANTANA Feb 18, 2017 14:34
[2017-02-18] MEDS ORDERED: hydrALAzine 20 MG INJ IV PRN (21:00)
[2017-02-19] VITALS (11 sets, daily range): BP systolic 135–163; BP diastolic 78–103; PULSE 80–103; RESP 18
[2017-02-19] MEDS: ALBUTEROL/IPRATROPIUM (NEB) 3 ML AMP NEB SCH ×5 (00:47→16:52)
--- NOTE | 2017-02-19 06:24 | PRO ---
DATE OF PROCEDURE: 02/17/2017 INDICATION: This is a 61-year-old male who was admitted with alcohol and drug abuse who was admitted with 2 episodes of generalized seizures. EEG is to rule out seizure activity. CURRENT MEDICATIONS: Keppra. PROCEDURE PERFORMED: Utilizing a 16-channel EEG machine, cap scalp electrodes were applied in accordance with international 10- 20 system. [id number], [id number] montages were displayed. Electrical impedances were measured and reported. DESCRIPTION OF PROCEDURE: During the resting stage, a posterior dominant rhythm of about 8-9 hertz was seen bi-hemispherically. Photic stimulation had a good response. Hyperventilation was not performed. There were no focal lateralizing or epileptiform discharges identified. INTERPRETATION: This is a normal EEG. A normal EEG does not exclude seizure disorder. Please correlate clinically. Dictated By: Marissa Sales MD /hiral/nancy /Document#: [id number]
[2017-02-19 06:43] LABS: BASOPHILS % 0.4 % (0.0-2.0); EOSINOPHILS # 0.2 10^3/ul (0.0-0.5); EOSINOPHILS % 3.2 % (0.0-7.0); HEMATOCRIT 38.9 % (42.0-52.0); LYMPHOCYTES # 1.3 10^3/ul (0.8-2.9); LYMPHOCYTES % 19.8 % (15.0-51.0); MEAN CORPUSCULAR HEMOGLOBIN 29.5 pg (29.0-33.0); MEAN CORPUSCULAR HGB CONC 33.4 g/dl (32.0-37.0); MEAN CORPUSCULAR VOLUME 88.2 fl (82.0-101.0); MEAN PLATELET VOLUME 9.9 fl (7.4-10.4); MONOCYTE # 0.6 10^3/ul (0.3-0.9); MONOCYTES % 8.4 % (0.0-11.0); NEUTROPHIL # 4.5 10^3/ul (1.6-7.5); NEUTROPHILS % 66.1 % (39.0-77.0); PLATELET COUNT 305 10^3/UL (140-415); RED BLOOD COUNT 4.41 10^6/ul (4.70-6.10); RED CELL DISTRIBUTION WIDTH 14.5 % (11.5-14.5); WHITE BLOOD COUNT 6.8 10^3/ul (4.8-10.8)
[2017-02-19] MEDS: DEXTROSE 5%-0.45% NACL 1,000 ML IV SCH ×2 (07:56→09:44)
[2017-02-19] MEDS: LEVETIRACETAM 1000 MG (PMX) 100 ML IVPB SCH (08:01)
[2017-02-19] MEDS ORDERED: LEVE100018 PO (10:22)
[2017-02-19] MEDS ORDERED: ASPI325T4 PO (12:05)
[2017-02-19] MEDS ORDERED: CARV25TA79 PO (12:06)
[2017-02-19] MEDS ORDERED: LOSA50TA6 PO (12:09)
[2017-02-19] MEDS ORDERED: FURO20TA3 PO (12:09)
--- NOTE | 2017-02-19 13:50 | PDOCDIS ---
Discharge Instructions DIAGNOSIS Discharge Diagnosis 1. new onset seizure 2. hypertension CONDITION Patient Condition: Stable HOME CARE INSTRUCTIONS: Diet Instructions: Low Fat /Cholesterol FOLLOW UP/APPOINTMENTS Follow-up Plan 1. Follow up with Dr. Sharp in one week OTHER ORDERS: Other Orders: 1. Take your medications as prescribed EULALIA SANTANA Feb 19, 2017 13:50
--- NOTE | 2017-02-19 13:58 | DS ---
Date/Time of Note Date/Time of Note DATE: 02/19/17 TIME: 13:53 Discharge Summary Admission/Discharge Info Admit Date/Time Feb 16, 2017 at 23:43 Discharge Date/Time Discharge Diagnosis 1. new onset seizure 2. hypertension Patient Condition: Stable Consults 1. Dr. Sharp Hospital Course This is a 61-year-old male with history of alcohol abuse who came to [facility] after having a seizure. Patient was reportedly confused and combative when he was picked up by EMS. It was reported that he had flulike symptoms prior to his admission which had resolved. Patient does report going up the stairs in his house and afterwards ending up in hospital. Patient was noted with transaminitis likely secondary to his alcohol use and also with a lactic acid of 7.6 likely from the seizure. He had a CT scan of his head that was negative for any acute findings. He was seen by neurologist. He did have EEG done that was noted to be normal. He also MRI of the brain done as well. He was placed on Keppra with good response and we also did place him on benzodiazepine as needed. During his course of stay he did improve. His lactic acidosis had resolved. He did have rhabdomyolysis likely from recent seizure and was continued IV fluids with good response. Did have history of hypertension and suspect CHF. He was reported not taking his medications at home. We did resume him on his home medications and he was advised about medical compliance. During his course of stay he did improve. The plan of care was discussed with the patient and patient did verbalizes understanding. On day of discharge patient was in stable condition Discussed plan of care with Dr. Porter [facility] Active Scripts Levetiracetam* (Keppra*) 1,000 Mg Tablet, 1000 MG PO BID for 30 Days, TAB Prov:EULALIA SANTANA 02/19/17 Reported Medications Losartan Potassium* (Losartan Potassium*) 50 Mg Tablet, 50 MG PO DAILY, TAB 02/19/17 Furosemide* (Furosemide*) 20 Mg Tablet, 20 MG PO DAILY, #60 TAB 02/19/17 Carvedilol* (Carvedilol*) 25 Mg Tablet, 50 MG PO BID, #60 TAB 02/19/17 Aspirin* (Aspirin*) 325 Mg Tablet, 325 MG PO DAILY, TAB 02/19/17 Discontinued Reported Medications [Potassium ] 40 MEQ No Conflict Check 09/22/09 Furosemide (Lasix) 40 Mg Tab 09/22/09 Benazepril Hcl* (Benazepril Hcl*) 40 Mg Tablet 09/22/09 Carvedilol* (Carvedilol*) 12.5 Mg Tablet 09/22/09 Follow-up Plan CONDITION Patient Condition: Stable HOME CARE INSTRUCTIONS: Diet Instructions: Low Fat /Cholesterol FOLLOW UP/APPOINTMENTS Follow-up Plan 1. Follow up with Dr. Sharp in one week OTHER ORDERS: Other Orders: 1. Take your medications as prescribed Primary Care Provider Not On Staff Doctor Time spent on discharge: > 30 minutes Pending Labs Laboratory Tests Test 02/19/17 06:15 White Blood Count 6.810^3/ul (4.8-10.8) Red Blood Count 4.4110^6/ul (4.70-6.10) Hemoglobin 13.0g/dl (14.0-18.0) Hematocrit 38.9% (42.0-52.0) Mean Corpuscular Volume 88.2fl (82.0-101.0) Mean Corpuscular Hemoglobin 29.5pg (29.0-33.0) Mean Corpuscular Hemoglobin Concent 33.4g/dl (32.0-37.0) Red Cell Distribution Width 14.5% (11.5-14.5) Platelet Count 44843^3/UL (140-415) Mean Platelet Volume 9.9fl (7.4-10.4) Neutrophils % 66.1% (39.0-77.0) Lymphocytes % 19.8% (15.0-51.0) Monocytes % 8.4% (0.0-11.0) Eosinophils % 3.2% (0.0-7.0) Basophils % 0.4% (0.0-2.0) Nucleated Red Blood Cells % 0.0/100WBC (0.0-0.0) Neutrophils # 4.510^3/ul (1.6-7.5) Lymphocytes # 1.310^3/ul (0.8-2.9) Monocytes # 0.610^3/ul (0.3-0.9) Eosinophils # 0.210^3/ul (0.0-0.5) Basophils # 0.010^3/ul (0.0-0.1) Nucleated Red Blood Cells # 0.010^3/ul (0.0-0.0) EULALIA SANTANA Feb 19, 2017 13:58
--- NOTE | 2017-02-19 15:55 | RADRPT ---
PROCEDURE: MR Brain without contrast. CLINICAL INDICATION: New onset seizure. Evaluate for encephalopathy. Ethanol abuse. TECHNIQUE: An MRI of the brain was performed on a 1.5 michael scanner utilizing the following sequen manasa: Sagittal T1 weighted, axial T2 weighted, axial FLAIR, coronal GRE, and axial diffusion weighted with ADC mapping. COMPARISON: None FINDINGS: No evidence of restricted diffusion to suggest acute or early subacute ischemic infarction. There i s no evidence of intracranial hemorrhage, mass effect, or midline shift. No extra-axial fluid collec tions are seen. No hypointense signal abnormalities are seen on the GRE images to suggest the presence of blood degr adation products. Scattered nonspecific T2 signal hyperintensity foci in the subcortical and periven tricular white matter compatible with sequelae of mild chronic microvascular ischemic injury. No evidence of cortical dysplasia/gliosis or mesial temporal lobe asymmetry. The brain parenchyma is otherwise normal in signal intensity and morphology with preservation of gra y white differentiation . Age appropriate size of the ventricles and subarachnoid spaces. Cavum sep patrice pellucidum et vergae. 10 mm maxillary sinus mucous retention cyst or polyp. The posterior fossa contents, brainstem, seventh - eighth cranial nerve complexes, pituitary axis, o rbits, paranasal sinuses, and mastoid air cells are unremarkable. Normal flow voids are visible in the proximal intracranial arteries and dural sinuses, indicating pa tency. IMPRESSION: 1. No acute or early subacute ischemic infarction or intracranial hemorrhage. 2. Mild chronic microvascular ischemic changes and age related volume loss. RPTAT:AAJJ Physician Noe Date Time Electronically viewed and signed by Physician Noe on 02/19/2017 15:55 MILAD/
[2017-02-19] MEDS ORDERED: LEVETIRACETAM 500 MG TAB PO SCH (21:00)
[2017-02-20] MEDS ORDERED: ASPIRIN 325 MG TAB PO SCH (09:00)
[2017-02-20] MEDS ORDERED: LOSARTAN 50 MG TAB PO SCH (09:00)
[2017-02-20] MEDS ORDERED: FUROSEMIDE 20 MG TAB PO SCH (09:00)
== END 2017-02-19 18:40 | disposition home or self-care (01) | DRG 101 ==
LOC: E/R 15:40 → TEL 23:43
PROVIDERS: ADMIT Internal Medicine; ATTEND Internal Medicine
DX: R56.9 Unspecified convulsions (principal); E87.2 Acidosis; M62.82 Rhabdomyolysis; K70.9 Alcoholic liver disease, unspecified; I10 Essential (primary) hypertension
CPT/HCPCS: 36415; 70450; 70551; 71010; 76705; 80053; 80306; 82140; 82550; 82553; 83605; 84484; 85025; 85610; 85730; 93005; 94640; 94664; 95819; 96374; 96375; J0171; J0360; J1953; J2060; J2543; J3370; J3411; J3475; J7030; J7042; Q9967